=== PATIENT | female | born 1995 | race American Indian/Alaskan Native ===

== ENCOUNTER 2018-05-25 11:29 | Emergency (ER) | payer MEDICAID ==
[2018-05-25 11:41] VITALS: BP 147/69
--- NOTE | 2018-05-25 11:41 | Emergency Department Report ---
Blank Doc - Documentation Documentation: Nausea pelvic pain, vaginal bleeding, No vomiting. G 3 P2. Currently on depo. vaginal d/c. pain crampy 08/05. Followed by [facility]. Had a fall leg gave out. This initial assessment diagnostic orders/clinical plan/treatment (s) is/Are subjectto change based on patient's health status, clinical progession and re- assessment by fellow clinical providers in the ED. Further treatment and work-up at subsequent clinical providers decretion. Patient/guardians urged not to elope from s their condition may be serious if not clinically assessed and managed. Inital order include: CBC, BMP, HCG serum, UA
[2018-05-25 12:13] LABS: Bacteria,Urine 1+ /HPF (Negative); Bilirubin,Urine NEG (Negative); Blood,Urine NEG (Negative); Color,Urine Yellow (Yellow); Mucus,Urine FEW /HPF; Protein,Urine <15 mg/dL mg/dL (Negative); Urobilinogen,Urine < 2.0 mg/dL (<2.0)
[2018-05-25 12:21] LABS: Basophils # (Auto) 0.1 K/mm3 (0.0-0.1); Basophils % (Auto) 1.4 % (0.0-1.8); Eosinophils % (Auto) 0.5 % (0.0-4.3); Hematocrit 38.5 % (30.3-42.9); Lymphocytes # (Auto) 2.9 K/mm3 (1.2-5.4); Lymphocytes % (Auto) 53.7 % (13.4-35.0); Mean Corpuscular HGB Conc 34 % (30-34); Mean Corpuscular Volume 83 fl (79-97); Monocytes # (Auto) 0.4 K/mm3 (0.0-0.8); Platelet Count 366 K/mm3 (140-440); Red Blood Count 4.67 M/mm3 (3.65-5.03); Red Cell Distribution Width 14.6 % (13.2-15.2)
[2018-05-25 12:41] LABS: BUN/Creatinine Ratio 11; Blood Urea Nitrogen 8 mg/dL (7-17); Calcium 9.5 mg/dL (8.4-10.2); Hemolysis Index 11
--- NOTE | 2018-05-25 13:33 | Emergency Department Report ---
ED Female HPI - General Chief complaint: Vaginal Bleeding Stated complaint: NAUSEA/WEAKNESS/VAG BLEED Time Seen by Provider: 05/25/18 11:36 Source: patient Mode of arrival: Ambulatory Limitations: No Limitations - History of Present Illness Initial comments: Patient is a 22-year-old female who presents to the ED complaining of irregular vaginal spotting that started a couple days ago. Patient said that she recently started on Depo-Provera CONTRACEPTIVE. She denies fevers/chills/nausea vomiting - Related Data Previous Rx's Medication Instructions Recorded Last Taken Type 21/Iron Fu/Folic Acid 1 each PO QDAY #30 tablet 11/30/12 Unknown Rx [ Complete Caplet] Promethazine [Phenergan TAB] 25 mg PO Q6H PRN #20 tablet 11/30/12 Unknown Rx Acetaminophen/Codeine [Tylenol #3] 1 tab PO Q6H PRN #15 tab 11/04/13 Unknown Rx Penicillin Vk [Veetids TAB] 500 mg PO BID #20 tablet 11/04/13 Unknown Rx predniSONE [Deltasone] 20 mg PO QDAY #5 tab 11/04/13 Unknown Rx Ibuprofen [Motrin] 800 mg PO Q8HR #30 tablet 05/25/18 Unknown Rx Allergies Allergy/AdvReac Type Severity Reaction Status Date / Time No Known Allergies Allergy Verified 05/25/18 11:31 ED Review of Systems ROS: Stated complaint: NAUSEA/WEAKNESS/VAG BLEED Other details as noted in HPI Comment: All other systems reviewed and negative ED Past Medical Hx - Past Medical History Previous Medical History?: No - Surgical History Additional Surgical History: , - Social History Smoking Status: Current Some Day Smoker Substance Use Type: None - Medications Home Medications: Home Medications Medication Instructions Recorded Confirmed Last Taken Type 21/Iron Fu/Folic Acid 1 each PO QDAY #30 tablet 11/30/12 Unknown Rx [ Complete Caplet] Promethazine [Phenergan TAB] 25 mg PO Q6H PRN #20 tablet 11/30/12 Unknown Rx Acetaminophen/Codeine [Tylenol #3] 1 tab PO Q6H PRN #15 tab 11/04/13 Unknown Rx Penicillin Vk [Veetids TAB] 500 mg PO BID #20 tablet 11/04/13 Unknown Rx predniSONE [Deltasone] 20 mg PO QDAY #5 tab 11/04/13 Unknown Rx Ibuprofen [Motrin] 800 mg PO Q8HR #30 tablet 05/25/18 Unknown Rx ED Physical Exam - General Limitations: No Limitations General appearance: alert, in no apparent distress - Head Head exam: Present: atraumatic, normocephalic - Eye Eye exam: Present: normal appearance - ENT ENT exam: Present: mucous membranes moist - Neck Neck exam: Present: normal inspection - Respiratory Respiratory exam: Present: normal lung sounds bilaterally. Absent: respiratory distress - Cardiovascular Cardiovascular Exam: Present: regular rate, normal rhythm. Absent: systolic murmur, diastolic murmur, rubs, gallop - GI/Abdominal GI/Abdominal exam: Present: soft, normal bowel sounds - Extremities Exam Extremities exam: Present: normal inspection - Back Exam Back exam: Present: normal inspection - Neurological Exam Neurological exam: Present: alert, oriented X3 - Psychiatric Psychiatric exam: Present: normal affect, normal mood - Skin Skin exam: Present: warm, dry, intact, normal color. Absent: rash ED Course Vital Signs 05/25/18 11:38 Temperature 98.6 F Pulse Rate 89 Respiratory 16 Rate Blood Pressure 147/69 O2 Sat by Pulse 98 Oximetry ED Medical Decision Making - Lab Data Result diagrams: 05/25/18 12:06 05/25/18 12:06 - Medical Decision Making 22-year-old female presents with irregular cycle. I discussed the patient due to Depo-Provera usually has a side effect of irregular cycles. Patient is not at the moment. Vital signs are normal she is in no acute distress. Discussed with patient to follow up with her NURSE TRANSITIONAL. Critical care attestation.: If time is entered above; I have spent that time in minutes in the direct care of this critically ill patient, excluding procedure time. ED Disposition Clinical Impression: Menorrhagia with irregular cycle Disposition: DC-01 TO HOME OR SELFCARE Is pt being admited?: No Does the pt Need Aspirin: No Condition: Stable Instructions: Methylprednisolone (Injection), Menorrhagia (ED) Additional Instructions: Make sure to follow up with the primary care physician as discussed. Take all your medications as you've been prescribed. If you have any worsening symptoms or develop new symptoms please return to ED immediately. Prescriptions: Ibuprofen [Motrin] 800 mg PO Q8HR #30 tablet Referrals: HEIDY KUHN MD [Referring] - 3-5 Days Forms: Work/School Release Form(ED) Time of Disposition: 13:56
== END 2018-05-25 14:07 | disposition home or self-care (01) ==
LOC: ED 11:29
DX: N92.0 Excessive and frequent menstruation with regular cycle (principal)
CPT/HCPCS: 36415; 80048; 81001; 84703; 85025; 99283

== ENCOUNTER 2018-07-10 13:54 | Emergency (ER) | payer MEDICAID ==
--- NOTE | 2018-07-10 20:00 | Emergency Department Report ---
ED Dysuria HPI - HPI Chief Complaint: Urogenital-Female Stated Complaint: BODY ACHES/PELVIC PAIN/BLURRY VISION Time Seen by Provider: 07/10/18 19:00 Severity: Mild Symptoms: Dysuria: No, Frequency: No, Suprapubic Pain: No, Flank Pain: No, Fever: No, Hematuria: No, Abdominal Pain: No, Previous UTI's: No Other History: Patient is a 23-year-old female comes to the ER today complaining of chronic pelvic pain. She states that she has recently been seen by [facility] and had an ultrasound and was treated for gonorrhea and chlamydia. She got a shot of an unknown medicine and she was put on doxycycline by mouth. She comes in today concerned and wanting to know if her infection is getting better. Patient had an within the last year she cannot give me the exact date. Last menstrual cycle 2 weeks ago. Patient has been 3 times and has 2 living children with one . ED Review of Systems ROS: Stated complaint: BODY ACHES/PELVIC PAIN/BLURRY VISION Other details as noted in HPI Comment: All other systems reviewed and negative ED Past Medical Hx - Past Medical History Previous Medical History?: No Additional medical history: herniated disc - Surgical History Past Surgical History?: No Additional Surgical History: , - Social History Smoking Status: Never Smoker Substance Use Type: Alcohol - Medications Home Medications: Home Medications Medication Instructions Recorded Confirmed Last Taken Type 21/Iron Fu/Folic Acid 1 each PO QDAY #30 tablet 11/30/12 Unknown Rx [ Complete Caplet] Promethazine [Phenergan TAB] 25 mg PO Q6H PRN #20 tablet 11/30/12 Unknown Rx Acetaminophen/Codeine [Tylenol #3] 1 tab PO Q6H PRN #15 tab 11/04/13 Unknown Rx Penicillin Vk [Veetids TAB] 500 mg PO BID #20 tablet 11/04/13 Unknown Rx predniSONE [Deltasone] 20 mg PO QDAY #5 tab 11/04/13 Unknown Rx Ibuprofen [Motrin] 800 mg PO Q8HR #30 tablet 05/25/18 Unknown Rx Dysuria Exam - Exam General: Vital signs noted. No distress. Alert and acting appropriately. Exam: Yes Moist Mucous Membranes, No CVA Tenderness, No Abdominal Tenderness, No Rigidity or Guarding ED Course Vital Signs 07/10/18 14:49 Temperature 98.2 F Pulse Rate 77 Respiratory 16 Rate Blood Pressure 109/57 O2 Sat by Pulse 99 Oximetry ED Medical Decision Making - Medical Decision Making Labs 07/10/18 19:30 Urine Color Yellow Urine Turbidity Clear Urine pH 6.0 Ur Specific [place] 1.033 H Urine Protein <15 mg/dl Urine Glucose (UA) Neg Urine Ketones Neg Urine Blood Neg Urine Nitrite Neg Urine Bilirubin Neg Urine Urobilinogen < 2.0 Ur Leukocyte Esterase Neg Urine WBC (Auto) 2.0 Urine RBC (Auto) 1.0 U Epithel Cells (Auto) 2.0 Urine Bacteria (Auto) 1+ Urine Mucus Few Urine HCG, Qual Negative Lab Results 07/10/18 Range/Units 19:30 Urine Color Yellow (Yellow) Urine Turbidity Clear (Clear) Urine pH 6.0 (5.0-7.0) Ur Specific [place] 1.033 H (1.003-1.030) Urine Protein <15 mg/dl (Negative) mg/dL Urine Glucose (UA) Neg (Negative) mg/dL Urine Ketones Neg (Negative) mg/dL Urine Blood Neg (Negative) Urine Nitrite Neg (Negative) Urine Bilirubin Neg (Negative) Urine Urobilinogen < 2.0 (<2.0) mg/dL Ur Leukocyte Esterase Neg (Negative) Urine WBC (Auto) 2.0 (0.0-6.0) /HPF Urine RBC (Auto) 1.0 (0.0-6.0) /HPF U Epithel Cells (Auto) 2.0 (0-13.0) /HPF Urine Bacteria (Auto) 1+ (Negative) /HPF Urine Mucus Few /HPF Urine HCG, Qual Negative (Negative) abd soft non tender no cva tenderness no fever I offered pt ultrasound she declined and will follow up with Dr Santiago who is liquefaction plant operator. ambulatory on dc Critical care attestation.: If time is entered above; I have spent that time in minutes in the direct care of this critically ill patient, excluding procedure time. ED Disposition Clinical Impression: Pelvic pain Disposition: DC- TO HOME OR SELFCARE Is pt being admited?: No Does the pt Need Aspirin: No Condition: Stable Additional Instructions: FOLLOW UP WE DISCUSSED Referrals: [facility] [Other] - 3-5 Days MARINA SANTIAGO MD [Staff Physician] - 3-5 Days Time of Disposition: 21:06
[2018-07-10 20:21] LABS: Bacteria,Urine 1+ /HPF (Negative); Bilirubin,Urine NEG (Negative); Blood,Urine NEG (Negative); Color,Urine Yellow (Yellow); Mucus,Urine FEW /HPF; Protein,Urine <15 mg/dL mg/dL (Negative); Urobilinogen,Urine < 2.0 mg/dL (<2.0)
[2018-07-10 20:53] LABS: HCG Qualitative,Urine Negative (Negative)
[2018-07-12 17:58] VITALS: BP 120/60
== END 2018-07-10 21:00 | disposition home or self-care (01) ==
LOC: ED 13:54
DX: R10.2 Pelvic and perineal pain (principal)
CPT/HCPCS: 81001; 81025; 99283

== ENCOUNTER 2020-01-17 11:49 | Emergency (ER) | payer MEDICAID ==
[2020-01-17 12:20] VITALS: BP 105/69
[2020-01-17 12:56] LABS: Bacteria,Urine 1+ /HPF (Negative); Bilirubin,Urine NEG (Negative); Blood,Urine NEG (Negative); Color,Urine Yellow (Yellow); Mucus,Urine FEW /HPF; Protein,Urine <15 mg/dL mg/dL (Negative); Urobilinogen,Urine < 2.0 mg/dL (<2.0)
[2020-01-17 13:00] LABS: HCG Qualitative,Urine Negative (Negative)
== END 2020-01-17 14:20 | disposition left against medical advice (07) ==
LOC: ED 11:49
DX: R10.9 Unspecified abdominal pain (principal); Z53.21 Procedure and treatment not carried out due to patient leaving prior to being seen by health care provider
CPT/HCPCS: 81001; 81025; 87086

== ENCOUNTER 2020-07-10 11:53 | Emergency (ER) | payer MEDICAID ==
[2020-07-10 12:05] VITALS: BP 118/68
--- NOTE | 2020-07-10 12:14 | Emergency Department Report ---
ED Female HPI - General Chief complaint: Abdominal Pain Stated complaint: VAGINAL BLEEDING AFTER PROCEDURE Time Seen by Provider: 07/10/20 12:04 Source: patient Mode of arrival: Ambulatory Limitations: No Limitations - History of Present Illness Initial comments: Patient is a 25-year-old female presents emergency room with complaints of light vaginal spotting that began a couple days ago. She states that she also has a vaginal odor. She denies any vaginal discharge, itching, burning. She states that she has had bacterial vaginosis in the past. She states that she has some mild lower abdominal cramping occasionally. She states that on May 29 she had a LEEP procedure by her MAINTENANCE PORTER. She states that she had her last follow-up on June 20. She states that her last menstrual cycle was June 16. She did not call her MAINTENANCE PORTER for this complaint. She denies any heavy bleeding, passing clots, fever, dysuria, vomiting, diarrhea. No other past medical history. No allergies medications. She denies any concerns for STDs and does not want STD treatment. - Related Data Previous Rx's Medication Instructions Recorded Last Taken Type 21/Iron Fu/Folic Acid 1 each PO QDAY #30 tablet 11/30/12 Unknown Rx [ Complete Caplet] Promethazine [Phenergan] 25 mg PO Q6H PRN #20 tablet 11/30/12 Unknown Rx Acetaminophen/Codeine [Tylenol #3] 1 tab PO Q6H PRN #15 tab 11/04/13 Unknown Rx Penicillin Vk [Veetids TAB] 500 mg PO BID #20 tablet 11/04/13 Unknown Rx predniSONE [Deltasone] 20 mg PO QDAY #5 tab 11/04/13 Unknown Rx Ibuprofen [Motrin] 800 mg PO Q8HR #30 tablet 05/25/18 Unknown Rx metroNIDAZOLE [Flagyl] 500 mg PO BID 7 Days #14 tab 07/10/20 Unknown Rx Allergies Allergy/AdvReac Type Severity Reaction Status Date / Time No Known Allergies Allergy Verified 07/10/20 11:58 ED Review of Systems ROS: Stated complaint: VAGINAL BLEEDING AFTER PROCEDURE Other details as noted in HPI Comment: All other systems reviewed and negative ED Past Medical Hx - Past Medical History Previous Medical History?: No Additional medical history: herniated disc - Surgical History Additional Surgical History: ,/ LEPT - Social History Smoking Status: Never Smoker Substance Use Type: None - Medications Home Medications: Home Medications Medication Instructions Recorded Confirmed Last Taken Type 21/Iron Fu/Folic Acid 1 each PO QDAY #30 tablet 11/30/12 Unknown Rx [ Complete Caplet] Promethazine [Phenergan] 25 mg PO Q6H PRN #20 tablet 11/30/12 Unknown Rx Acetaminophen/Codeine [Tylenol #3] 1 tab PO Q6H PRN #15 tab 11/04/13 Unknown Rx Penicillin Vk [Veetids TAB] 500 mg PO BID #20 tablet 11/04/13 Unknown Rx predniSONE [Deltasone] 20 mg PO QDAY #5 tab 11/04/13 Unknown Rx Ibuprofen [Motrin] 800 mg PO Q8HR #30 tablet 05/25/18 Unknown Rx metroNIDAZOLE [Flagyl] 500 mg PO BID 7 Days #14 tab 07/10/20 Unknown Rx ED Physical Exam - General Limitations: No Limitations General appearance: alert, in no apparent distress - Head Head exam: Present: atraumatic, normocephalic - Eye Eye exam: Present: normal appearance - ENT ENT exam: Present: mucous membranes moist - Respiratory Respiratory exam: Present: normal lung sounds bilaterally. Absent: respiratory distress, wheezes, rales, rhonchi, stridor, chest wall tenderness, accessory muscle use, decreased breath sounds, prolonged expiratory - Cardiovascular Cardiovascular Exam: Present: regular rate, normal rhythm, normal heart sounds. Absent: systolic murmur, diastolic murmur, rubs, gallop - GI/Abdominal GI/Abdominal exam: Present: soft, normal bowel sounds. Absent: distended, tenderness, guarding, rebound, rigid - External exam: Present: normal external exam. Absent: erythema, swelling, lesions, lacerations, ecchymosis, bleeding Speculum exam: Present: vaginal discharge (copious watery yellow/green discharge), cervical discharge, other (cardroom plastic card grader for pelvic examination: Kiersten, COMBUSTION ENGINEER). Absent: erythema, vaginal bleeding, foreign body, tissue, laceration Bi-manual exam: Present: normal bi-manual exam. Absent: cervical motion tendernes, adnexal tenderness, adnexal mass - Neurological Exam Neurological exam: Present: alert, oriented X3 - Psychiatric Psychiatric exam: Present: normal affect, normal mood - Skin Skin exam: Present: warm, dry, intact ED Course Vital Signs 07/10/20 12:03 Temperature 98.0 F Pulse Rate 75 Respiratory 18 Rate Blood Pressure 118/68 O2 Sat by Pulse 96 Oximetry ED Medical Decision Making - Lab Data Result diagrams: 07/10/20 12:21 07/10/20 12:21 Lab Results 07/10/20 07/10/20 07/10/20 Range/Units 12:21 12:21 12:21 WBC 5.2 (4.5-11.0) K/mm3 RBC 4.53 (3.65-5.03) M/mm3 Hgb 13.7 (10.1-14.3) gm/dl Hct 39.0 (30.3-42.9) % MCV 86 (79-97) fl MCH 30 (28-32) pg MCHC 35 H (30-34) % RDW 12.4 L (13.2-15.2) % Plt Count 304 (140-440) K/mm3 Lymph % (Auto) 36.1 H (13.4-35.0) % Drew % (Auto) 8.1 H (0.0-7.3) % Eos % (Auto) 0.9 (0.0-4.3) % Baso % (Auto) 1.4 (0.0-1.8) % Lymph # (Auto) 1.9 (1.2-5.4) K/mm3 Drew # (Auto) 0.4 (0.0-0.8) K/mm3 Eos # (Auto) 0.0 (0.0-0.4) K/mm3 Baso # (Auto) 0.1 (0.0-0.1) K/mm3 Seg Neutrophils % 53.5 (40.0-70.0) % Seg Neutrophils # 2.8 (1.8-7.7) K/mm3 Sodium 142 (137-145) mmol/L Potassium 4.2 (3.6-5.0) mmol/L Chloride 105.3 (98-107) mmol/L Carbon Dioxide 25 (22-30) mmol/L Anion Gap 16 mmol/L BUN 12 (7-17) mg/dL Creatinine 0.7 (0.6-1.2) mg/dL Estimated GFR > 60 ml/min BUN/Creatinine Ratio 17 % Glucose 83 (65-100) mg/dL Calcium 8.9 (8.4-10.2) mg/dL Total Bilirubin 0.40 (0.1-1.2) mg/dL AST 15 (5-40) units/L ALT 13 (7-56) units/L Alkaline Phosphatase 64 (35-129) units/L Total Protein 7.1 (6.3-8.2) g/dL Albumin 4.0 (3.9-5) g/dL Albumin/Globulin Ratio 1.3 % HCG, Quant < 2 (0-4) mIU/mL Urine Color (Yellow) Urine Turbidity (Clear) Urine pH (5.0-7.0) Ur Specific [place] (1.003-1.030) Urine Protein (Negative) mg/dL Urine Glucose (UA) (Negative) mg/dL Urine Ketones (Negative) mg/dL Urine Blood (Negative) Urine Nitrite (Negative) Urine Bilirubin (Negative) Urine Urobilinogen (<2.0) mg/dL Ur Leukocyte Esterase (Negative) Urine WBC (Auto) (0.0-6.0) /HPF Urine RBC (Auto) (0.0-6.0) /HPF U Epithel Cells (Auto) (0-13.0) /HPF Urine Mucus /HPF // Range/Units Unknown WBC (4.5-11.0) K/mm3 RBC (3.65-5.03) M/mm3 Hgb (10.1-14.3) gm/dl Hct (30.3-42.9) % MCV (79-97) fl MCH (28-32) pg MCHC (30-34) % RDW (13.2-15.2) % Plt Count (140-440) K/mm3 Lymph % (Auto) (13.4-35.0) % Drew % (Auto) (0.0-7.3) % Eos % (Auto) (0.0-4.3) % Baso % (Auto) (0.0-1.8) % Lymph # (Auto) (1.2-5.4) K/mm3 Drew # (Auto) (0.0-0.8) K/mm3 Eos # (Auto) (0.0-0.4) K/mm3 Baso # (Auto) (0.0-0.1) K/mm3 Seg Neutrophils % (40.0-70.0) % Seg Neutrophils # (1.8-7.7) K/mm3 Sodium (137-145) mmol/L Potassium (3.6-5.0) mmol/L Chloride (98-107) mmol/L Carbon Dioxide (22-30) mmol/L Anion Gap mmol/L BUN (7-17) mg/dL Creatinine (0.6-1.2) mg/dL Estimated GFR ml/min BUN/Creatinine Ratio % Glucose (65-100) mg/dL Calcium (8.4-10.2) mg/dL Total Bilirubin (0.1-1.2) mg/dL AST (5-40) units/L ALT (7-56) units/L Alkaline Phosphatase (35-129) units/L Total Protein (6.3-8.2) g/dL Albumin (3.9-5) g/dL Albumin/Globulin Ratio % HCG, Quant (0-4) mIU/mL Urine Color Yellow (Yellow) Urine Turbidity Clear (Clear) Urine pH 6.0 (5.0-7.0) Ur Specific [place] 1.018 (1.003-1.030) Urine Protein <15 mg/dl (Negative) mg/dL Urine Glucose (UA) Neg (Negative) mg/dL Urine Ketones Neg (Negative) mg/dL Urine Blood Neg (Negative) Urine Nitrite Neg (Negative) Urine Bilirubin Neg (Negative) Urine Urobilinogen < 2.0 (<2.0) mg/dL Ur Leukocyte Esterase Neg (Negative) Urine WBC (Auto) < 1.0 (0.0-6.0) /HPF Urine RBC (Auto) 1.0 (0.0-6.0) /HPF U Epithel Cells (Auto) 1.0 (0-13.0) /HPF Urine Mucus Few /HPF - Medical Decision Making Patient is a 25-year-old female presents emergency room with complaints of light vaginal spotting that began a couple days ago. She states that she also has a vaginal odor. She denies any vaginal discharge, itching, burning. She states that she has had bacterial vaginosis in the past. She states that she has some mild lower abdominal cramping occasionally. She states that on May 29 she had a LEEP procedure by her MAINTENANCE PORTER. She states that she had her last follow-up on March 25. She states that her last menstrual cycle was June 16. She did not call her MAINTENANCE PORTER for this complaint. She denies any heavy bleeding, passing clots, fever, dysuria, vomiting, diarrhea. No other past medical history. No allergies medications. She denies any concerns for STDs and does not want STD treatment. Vitals are normal. On exam: No abdominal tenderness, pelvic examination completed with cardroom plastic card grader kiersten, COMBUSTION ENGINEER, there is copious watery yellow/green discharge vaginal and cervical discharge, no CMT, no adnexal tenderness or masses. Labs are normal. UA is within normal limits. Wet prep shows evidence of BV. G/C swab sent. Offered patient prophylactic treatment for G/C and she declines. pt given prescription for flagyl. discussed the importance of MAINTENANCE PORTER follow up. advised pt Please take medication as prescribed. Increase your water intake. Follow-up with your MAINTENANCE PORTER. Please go to medical records in 1 week for results of your test as you declined treatment today. Please follow-up with your MAINTENANCE PORTER for full STD panel. Please have any partner tested and treated as well. Avoid sexual intercourse. Return to emergency room for any worsening symptoms. Critical care attestation.: If time is entered above; I have spent that time in minutes in the direct care of this critically ill patient, excluding procedure time. ED Disposition Clinical Impression: Abdominal cramping, Bacterial vaginosis, Vaginal spotting Disposition: - TO HOME OR SELFCARE Is pt being admited?: No Does the pt Need Aspirin: No Condition: Stable Instructions: Bacterial Vaginosis, Bacterial Vaginosis (ED), Abdominal Pain (ED) Additional Instructions: Please take medication as prescribed. Increase your water intake. Follow-up with your MAINTENANCE PORTER. Please go to medical records in 1 week for results of your test as you declined treatment today. Please follow-up with your MAINTENANCE PORTER for f ull STD panel. Please have any partner tested and treated as well. Avoid sexual intercourse. Return to emergency room for any worsening symptoms. Prescriptions: metroNIDAZOLE [Flagyl] 500 mg PO BID 7 Days #14 tab Referrals: BERTHA WHITE MD [Primary Care Provider] - 2-3 Days Forms: STI Treatment and Prevention Time of Disposition: 15:26 Print Language: UKRAINIAN
[2020-07-10 12:46] LABS: Basophils # (Auto) 0.1 K/mm3 (0.0-0.1); Basophils % (Auto) 1.4 % (0.0-1.8); Eosinophils % (Auto) 0.9 % (0.0-4.3); Hemoglobin 13.7 gm/dl (10.1-14.3); Lymphocytes # (Auto) 1.9 K/mm3 (1.2-5.4); Lymphocytes % (Auto) 36.1 % (13.4-35.0); Mean Corpuscular HGB Conc 35 % (30-34); Mean Corpuscular Volume 86 fl (79-97); Monocytes # (Auto) 0.4 K/mm3 (0.0-0.8); Monocytes % (Auto) 8.1 % (0.0-7.3); Platelet Count 304 K/mm3 (140-440); Red Blood Count 4.53 M/mm3 (3.65-5.03); Red Cell Distribution Width 12.4 % (13.2-15.2)
[2020-07-10 12:58] LABS: Bilirubin,Urine NEG (Negative); Blood,Urine NEG (Negative); Color,Urine Yellow (Yellow); Mucus,Urine FEW /HPF; Protein,Urine <15 mg/dL mg/dL (Negative); Urobilinogen,Urine < 2.0 mg/dL (<2.0); WBC,Urine < 1.0 /HPF (0.0-6.0)
[2020-07-10 13:45] LABS: Alanine Aminotransferase 13 units/L (7-56); BUN/Creatinine Ratio 17; Blood Urea Nitrogen 12 mg/dL (7-17); Calcium 8.9 mg/dL (8.4-10.2); Hemolysis Index 8
== END 2020-07-10 15:36 | disposition home or self-care (01) ==
LOC: ED 11:53
DX: N93.9 Abnormal uterine and vaginal bleeding, unspecified (principal); N76.0 Acute vaginitis; B96.89 Other specified bacterial agents as the cause of diseases classified elsewhere; R10.9 Unspecified abdominal pain; Z79.899 Other long term (current) drug therapy; Z98.890 Other specified postprocedural states
CPT/HCPCS: 36415; 80053; 81001; 84702; 85025; 87210; 87591

== ENCOUNTER 2021-11-08 10:21 | Emergency (ER) | payer MEDICAID ==
[2021-11-08 10:58] VITALS: BP 122/60
== END 2021-11-09 11:20 | disposition left against medical advice (07) ==
LOC: ED 10:21
DX: R06.02 Shortness of breath (principal); Z53.21 Procedure and treatment not carried out due to patient leaving prior to being seen by health care provider